=== PATIENT | female | born 1935 | race Caucasian/White ===

== ENCOUNTER → 2017-08-21 | Outpatient (CLI) | payer OTHER | END | disposition home or self-care (01) | LOC: MAMMO 08-02 08:40 | DX: Z12.31 Encounter for screening mammogram for malignant neoplasm of breast (principal) ==

== ENCOUNTER → 2018-10-30 | Outpatient (CLI) | payer OTHER | END | disposition home or self-care (01) | LOC: MAMMO 09:58 | DX: Z12.31 Encounter for screening mammogram for malignant neoplasm of breast (principal) ==

== ENCOUNTER → 2019-09-22 | Outpatient (CLI) | payer OTHER | END | disposition home or self-care (01) | LOC: US 09:43 | DX: E04.2 Nontoxic multinodular goiter (principal) ==

== ENCOUNTER 2020-08-17 14:44 | Emergency (ER) | payer OTHER ==
[2020-08-17 16:24] LABS: BASO # 0.1 10*3/uL (0.0-0.1); BASO % 0.7 % (0.0-1.0); EOS % 0.3 % (1.0-4.0); HEMATOCRIT 37.9 % (37.0-47.0); LYMPH # 1.1 10*3/uL (1.3-4.4); LYMPH % 11.5 % (27.0-41.0); MEAN CELL VOLUME 87.5 fl (81.0-99.0); MEAN CORPUSCULAR HGB 27.7 pg (27.0-31.0); MEAN CORPUSCULAR HGB CONC 31.7 g/dl (33.0-37.0); MEAN PLATELET VOLUME 8.7 fl (9.6-12.3); MONO # 0.9 10*3/uL (0.1-1.0); MONO % 10.1 % (3.0-9.0); NEUT # 7.1 10*3/uL (2.3-7.9); NEUT % 77.1 % (47.0-73.0); PLATELET COUNT AUTOMATED 244 10*3/uL (130-400); RED BLOOD COUNT 4.33 10*6/uL (4.10-5.10); RED CELL DISTRI WIDTH 14.1 % (0-14.5); WHITE BLOOD COUNT 9.2 10*3/uL (4.8-10.8)
[2020-08-17 16:36] LABS: BUN 20 mg/dl (7-24); CHLORIDE 109 mmol/L (98-107); CREATININE 0.91 mg/dL (0.55-1.02); POTASSIUM 3.7 mmol/L (3.5-5.1); SODIUM 139 mmol/L (136-145)
[2020-08-17] MEDS ORDERED: TYLENOL325 M1 PO (17:25)
[2020-08-17] MEDS ORDERED: NAPROXEN250 MG PO (17:25)
== END 2020-08-17 17:28 | disposition home or self-care (01) ==
LOC: ED 14:44
PROVIDERS: Emergency Medicine
DX: M71.22 Synovial cyst of popliteal space [Baker], left knee (principal); M17.0 Bilateral primary osteoarthritis of knee; R60.0 Localized edema; I10 Essential (primary) hypertension; R79.1 Abnormal coagulation profile

== ENCOUNTER 2023-02-21 18:35 | Emergency (ER) | payer OTHER ==
[~2023-02-21] VITALS: Ht 152.4 cm; Wt 50.8 kg
[~2023-02-21 18:35] MED LIST: NAPROXEN250 MG PO; TYLENOL325 M1 PO
== END 2023-02-21 21:55 | disposition home or self-care (01) ==
LOC: ED 18:35
DX: S01.01XA Laceration without foreign body of scalp, initial encounter (principal); W18.39XA Other fall on same level, initial encounter; Y93.89 Activity, other specified; Y92.89 Other specified places as the place of occurrence of the external cause; Y99.8 Other external cause status

== ENCOUNTER → 2023-08-07 | Outpatient (CLI) | payer OTHER | END | disposition home or self-care (01) | LOC: US 12:46 | PROVIDERS: ATTEND Specialist | DX: E04.2 Nontoxic multinodular goiter (principal) ==